=== PATIENT | female | born 1970 | race Caucasian/White ===

== ENCOUNTER 2024-08-17 13:01 | Emergency (ER) | payer SELFPAY ==
[~2024-08-17] VITALS: Ht 170.2 cm; Wt 73.0 kg
[2024-08-17 13:08] VITALS: O2SAT 98
[2024-08-17] MEDS: ACETAMINOPHEN 325MG TABLET PO ONE (15:12)
[2024-08-17] MEDS: KETOROLAC 15MG/ML VIAL IM ONE (15:13)
[2024-08-17] MEDS: LIDOCAINE 5% PATCH TOP SCH (15:13)
[2024-08-17 16:00] VITALS: BP 121/58; PULSE 68; RESP 18; TEMP 36.7; O2SAT 98
== END 2024-08-17 16:45 | disposition home or self-care (01) ==
LOC: ER 13:52
DX: H93.12 Tinnitus, left ear (principal); I10 Essential (primary) hypertension; Z04.89 Encounter for examination and observation for other specified reasons; Y08.89XA Assault by other specified means, initial encounter; Y93.89 Activity, other specified; Y92.89 Other specified places as the place of occurrence of the external cause; Y99.8 Other external cause status
CPT/HCPCS: 99283; 96372; J1885